=== PATIENT | male | born 1980 | race African-American/Black ===

== ENCOUNTER 2021-12-13 18:37 | Emergency (ER) | payer OTHER ==
[~2021-12-13] VITALS: Ht 175.3 cm; Wt 101.0 kg
[2021-12-13] MEDS ORDERED: NAPROXEN 500 MG TABLET PO STA (19:00)
[2021-12-13] MEDS ORDERED: CYCLOBENZAPRINE 10 MG TABLET. PO ONE (19:00)
[2021-12-13] MEDS ORDERED: HYDROcodone/APAP 5/325MG 1 TAB TABLET PO ONE (19:00)
--- NOTE | 2021-12-13 19:28 | RAD ---
Three-view left shoulder dated 12/13/2021. No comparison available. CLINICAL INDICATION: Pain. FINDINGS: 3 views left shoulder show normal bony alignment. No displaced fracture. There is mild to moderate de generative change of the glenohumeral joint with small loose body at the inferior joint space. Mild h ypertrophic change of the AC joint. No acute osseous or articular abnormality. IMPRESSION: 1. No acute radiographic abnormality. 2. Degenerative changes. Electronically signed by: Ghulam Lopez MD (12/13/2021 7:25 PM) KRISSY
[2021-12-13] MEDS ORDERED: HYDR-2761 PO (19:48)
[2021-12-13] MEDS ORDERED: METH4TAB2 PO (19:48)
[2021-12-13] MEDS ORDERED: NAPR-514 PO (19:48)
[2021-12-13] MEDS ORDERED: CYCL10TA19 PO (19:48)
--- NOTE | 2021-12-13 19:49 | PHYS DOC ---
Past Medical History Past Medical History: No Pertinent History Past Surgical History: No Surgical History Smoking Status: Never Smoker Alcohol Use: None Drug Use: None General Adult EDM: Chief Complaint: SHOULDER INJURY HPI: HPI: Patient is a 41 year old male patient presented to the ED today complaining of moderate left shoulder pain symptoms began last week on Sunday. He states he was hanging 200lb mental doors on Sunday and Sunday and developed the pain after that. Patient states the pain is worse on range of motion as well as activities. Patient denies any trauma. Describes the pain as sharp and constant. Denies anything relieving the pain. Review of Systems: Review of Systems: Constitutional: Denies fever or chills. [] Respiratory: Denies cough or shortness of breath. [] Cardiovascular: Denies chest pain or edema. [] [] Musculoskeletal: Reports left shoulder pain Integument: Denies rash. [] Neurologic: Denies headache, focal weakness or sensory changes. [] Psychiatric: Denies depression or anxiety. [] Heart Score: C/O Chest Pain: N/A Risk Factors: Risk Factors: DM, Current or recent (<one month) smoker, HTN, HLP, family history of CAD, obesity. Risk Scores: Score 0 - 3: 2.5% MACE over next 6 weeks - Discharge Home Score 4 - 6: 20.3% MACE over next 6 weeks - Admit for Clinical Observation Score 7 - 10: 72.7% MACE over next 6 weeks - Early Invasive Strategies Current Medications: Current Medications Medications (Trade) Dose Ordered Sig/Nataliya Start Time Stop Time Status Last Admin Dose Admin Acetaminophen/ Hydrocodone Bitart (Lortab 5/325) 2 tab 1X ONCE 12/13/21 19:00 12/13/21 19:01 DC 12/13/21 19:25 2 TAB Cyclobenzaprine HCl (Flexeril) 10 mg 1X ONCE 12/13/21 19:00 12/13/21 19:01 DC 12/13/21 19:25 10 MG Naproxen (Naprosyn) 500 mg 1X STAT 12/13/21 19:00 12/13/21 19:01 DC 12/13/21 19:26 500 MG Allergies: Allergies: Allergies Coded Allergies Type Severity Reaction Last Updated Verified Penicillins Allergy Unknown anaphalxis 03/20/15 No Physical Exam: PE: Constitutional: Well developed, well nourished, no acute distress, non-toxic appearance. [] HENT: Normocephalic, atraumatic, bilateral external ears normal, oropharynx moist, no oral exudates, nose normal. [] Cardiovascular:Heart rate regular rhythm, no murmur [] Lungs & Thorax: Bilateral breath sounds clear to auscultation [] Abdomen: Bowel sounds normal, soft, no tenderness, no masses, no pulsatile masses. [] Skin: Warm, dry, no erythema, no rash. [] Back: No tenderness, no CVA tenderness. [] Extremities: Left upper extremity with no obvious deformity, no edema, no ecchymosis, diffuse tenderness throughout the left shoulder. Full passive range of motion to the left shoulder. Adequate radial, medial, ulnar sensation to the left upper extremity. +2 left radial pulse. Cap refill less than 2 seconds to left fingers Neurologic: Alert and oriented X 3, normal motor function, normal sensory function, no focal deficits noted. [] Psychologic: Affect normal, judgement normal, mood normal. [] Current Patient Data: Vital Signs: Vital Signs Date Time Temp Pulse Resp B/P (MAP) Pulse Ox O2 Delivery O2 Flow Rate FiO2 12/13/21 19:25 18 97 Room Air 12/13/21 18:46 98.5 61 183/105 (131) 98.5 EKG: EKG: [] Radiology/Procedures: Radiology/Procedures: []PROCEDURE: SHOULDER 2+V LEFT Three-view left shoulder dated 12/13/2021. No comparison available. CLINICAL INDICATION: Pain. FINDINGS: 3 views left shoulder show normal bony alignment. No displaced fracture. There is mild to moderate degenerative change of the glenohumeral joint with small loose body at the inferior joint space. Mild hypertrophic change of the AC joint. No acute osseous or articular abnormality. IMPRESSION: 1. No acute radiographic abnormality. 2. Degenerative changes. Electronically signed by: Ghulam Lopez MD (12/13/2021 7:25 PM) [facility] [place]CTATED and SIGNED BY: GHULAM LOPEZ MD DATE: 12/13/21 [id number] 0 Course & Med Decision Making: Course & Med Decision Making Pertinent Labs and Imaging studies reviewed. (See chart for details) This a 41-year-old male patient presented to the ED today complaining of left shoulder pain that began on Sunday last week after hanging mental doors. Left shoulder x-rays are negative for any acute findings, noted for DJD. Discharge to home. Ice elevation encouraged. Follow-up with Ortho in 1 week Claudia Disclaimer: Claudia Disclaimer: This electronic medical record was generated, in whole or in part, using a voice recognition dictation system. Departure Departure Impression: Primary Impression: Shoulder pain, left Qualified Codes: M25.512 - Pain in left shoulder Disposition: HOME / SELF CARE / HOMELESS Condition: STABLE Referrals: NO PCP (PCP) MILADYS CHAKRABORTY Jr. DO follow up in one week Patient Instructions: Shoulder Pain, [id number] Additional Instructions: You were evaluated in the emergency room, your left shoulder x-rays are negative for any acute findings. You arthritis in your shoulder, contact the provided orthopedic doctor and follow-up in the next 7 days. Scripts Hydrocodone Bit/Acetaminophen (HYDROCODONE-APAP 5-325 ) 1 Tab Tablet 1 TAB PO PRN Q6HRS PRN for PAIN, #8 TAB 0 Refills Prov: GLORIA MARIA APRN 12/13/21 Naproxen (NAPROXEN) 500 Mg Tablet 1 TAB PO BID for pain, #14 TAB 0 Refills Prov: GLORIA MARIA APRN 12/13/21 Cyclobenzaprine Hcl (CYCLOBENZAPRINE HCL) 10 Mg Tablet 1 TAB PO TID, #30 TAB Prov: GLORIA MARIA APRN 12/13/21 Methylprednisolone (MEDROL) 4 Mg Tab.ds.pk 1 PKG PO UD, #1 PKG Prov: GLORIA MARIA MACHINIST 12/13/21 GLORIA MARIA APRN Dec 13, 2021 19:49
[2021-12-13 19:54] VITALS: BP 199/115
== END 2021-12-13 20:00 | disposition home or self-care (01) ==
LOC: ER 18:37
DX: M25.552 Pain in left hip (principal)
CPT/HCPCS: 73030; 99284